=== PATIENT | female | born 1975 | race African-American/Black ===

== ENCOUNTER 2017-08-26 08:08 | Inpatient (IN) | payer OTHER ==
[~2017-08-26] VITALS: Ht 160 cm; Wt 68.0 kg
[2017-08-26 08:28] LABS: BASOPHIL (%) 0.5 % (0-1); EOSINOPHIL (%) 0.9 % (0-5); EOSINOPHIL COUNT 0.1 K/uL (0-0.3); HEMATOCRIT 42.5 % (36.0-46.0); HEMOGLOBIN 14.9 G/DL (11.9-15.5); IMMATURE GRANULOCYTE (%) 0.2 % (0.0-0.7); LYMPHOCYTE (%) 15.4 % (15-42); LYMPHOCYTE COUNT 1.3 K/uL (1.0-2.8); MCH 32.2 PG (29.0-34.0); MCHC 35.1 G/DL (30.0-36.0); MCV 91.8 FL (83-99); MONOCYTE (%) 5.2 % (3-12); MONOCYTE COUNT 0.4 K/uL (0-0.8); NEUTROPHIL (%) 77.8 % (45-76); NEUTROPHIL COUNT 6.6 K/uL (1.8-6.4); PLATELET COUNT 227 K/uL (156-360); RBC DIS.WIDTH-CV 12.6 % (11.8-14.6); RBC DIS.WIDTH-SD 42.2 % (39-53); RED BLOOD COUNT 4.63 M/uL (3.80-5.20); WHITE BLOOD COUNT 8.5 K/uL (4.1-10.2)
[2017-08-26 08:55] LABS: CHLORIDE 104 MEQ/L (99-109); POTASSIUM 3.8 MEQ/L (3.7-5.4); SODIUM 139 MEQ/L (136-147)
[2017-08-26 09:01] LABS: CREATININE 0.7 MG/DL (0.6-1.3); GFR ESTIMATE (CALCULATED) > 59 mL/min/; GLUCOSE 96 mg/dL (70-99); UREA NITROGEN (BUN) 15 mg/dL (9-23)
[2017-08-26] MEDS ORDERED: ALLEGRA ALLERG180 MG PO (10:09)
[2017-08-26] MEDS ORDERED: ADVIL200 MG PO (10:09)
[2017-08-26 19:30] VITALS: BP 176/98
[2017-08-26 19:40] VITALS: BP 176/98
[2017-08-26 23:42] VITALS: BP 164/92
[2017-08-27 04:02] VITALS: BP 164/94
[2017-08-27 08:34] VITALS: BP 140/81
[2017-08-27 11:39] VITALS: BP 143/79
[2017-08-27 16:25] VITALS: BP 143/71
[2017-08-27 23:34] VITALS: BP 154/88
[2017-08-28] MEDS ORDERED: ENDOCET 5-3251 EACH PO (08:11)
[2017-08-28 09:26] VITALS: BP 138/99
== END 2017-08-28 11:07 | disposition home or self-care (01) | DRG 511 ==
LOC: TRA 08:08 → SDC 14:47 → TRA 14:47 → 3EAST 17:47 → ENRESERV 17:47 → 2SOUTH 17:47 → ENRESERV 17:56 → 3EAST 19:11
PROVIDERS: Emergency Medicine
PROC: 0PSL04Z Reposition Left Ulna with Internal Fixation Device, Open Approach (ICD-10-PCS; principal; 2017-08-26)
DX: S52.032B Displaced fracture of olecranon process with intraarticular extension of left ulna, initial encounter for open fracture type I or II (principal); S83.411A Sprain of medial collateral ligament of right knee, initial encounter; S06.0X1A Concussion with loss of consciousness of 30 minutes or less, initial encounter; S70.12XA Contusion of left thigh, initial encounter; S80.12XA Contusion of left lower leg, initial encounter; M50.30 Other cervical disc degeneration, unspecified cervical region; V03.10XA Pedestrian on foot injured in collision with car, pick-up truck or van in traffic accident, initial encounter; Y92.410 Unspecified street and highway as the place of occurrence of the external cause; Z90.49 Acquired absence of other specified parts of digestive tract; Z80.0 Family history of malignant neoplasm of digestive organs; Z80.3 Family history of malignant neoplasm of breast
CPT/HCPCS: 70450; 71045; 72125; 72131; 73070; 73080; 73590; 76000; 80048; 85025; 85610; 99281; 99285; J0131; J0690; J1100; J1170; J1650; J2250; J2270; J2405; J2710; J3010; J7643